=== PATIENT | female | born 1950 | race Caucasian/White ===

== ENCOUNTER 2020-05-26 07:37 | Emergency (ER) | payer BC ==
[~2020-05-26] VITALS: Ht 162.6 cm; Wt 88.0 kg
[2020-05-26 07:59] VITALS: BP 136/92
[2020-05-26] MEDS ORDERED: OXYM30SP25 NS (08:01)
[2020-05-26] MEDS ORDERED: CEPH-264 PO (08:03)
--- NOTE | 2020-05-26 08:06 | PHYS DOC ---
Past History Past Medical History: A-Fib, CAD Adult General Chief Complaint Chief Complaint: NOSEBLEED HPI HPI Patient is a 70yo F on hospice for HFrEF who presents for nose bleed. This is a new problem, reports suffering nose bleeds for past 3 days. These all resolved after <1 hour with direct pressure but today given increased frequency of bleeds prompted her to seek care at our ED for potential cautery. Patient reports being on nasal O2 intermittently at home and has been on this more than usual. She "thinks" she has humidified oxygen, does not apply anything into nostrils to keep dry. In addition, patient is on Xarelto for DVT. While here, she is also wanting evaluation of RLE redness and weaping that started within past week. She has been afebrile and denies any significant pain but admits area has become more red and warm since onset concerning her for cellulitis for which she has suffered from in the past. Review of Systems Review of Systems Fourteen body systems of review of systems have been reviewed. See HPI for pertinent positives and negative responses, other hardin all other systems are negative, non-pertinent or non-contributory Physical Exam Physical Exam Constitutional: Well developed, well nourished, no acute distress, non-toxic appearance. HENT: Normocephalic, atraumatic, bilateral external ears normal, oropharynx magda st, no oral exudates, nose normal. Right nare without any obvious bleeding but residual dried blood present. No blood present in oropharynx Eyes: PERRLA, EOMI, conjunctiva normal, no discharge. Neck: Normal range of motion, no tenderness, supple, no stridor. Cardiovascular: Heart rate regular, irregular rhythm, no murmurs rubs or gallops Lungs & Thorax: Bilateral breath sounds clear to auscultation Abdomen: Bowel sounds normal, soft, no tenderness, no masses, no pulsatile masses. Nonsurgical abdomen, no peritoneal signs Skin: Warm, dry, no rash. Right lower leg involving mid tidwell down to superior ankle warm and tender to touch with several open weeping sores that are all <3mm large. No fluid collection and/or concern for abscess collection Back: No tenderness, no CVA tenderness. Extremities: No tenderness, no cyanosis, no clubbing, ROM intact, 3+ pitting edema bilaterally Neurologic: Alert and oriented X 3, grossly normal motor & sensory function, no focal deficits noted. Psychologic: Affect normal, judgement normal, anxious mood Current Patient Data Vital Signs Vital Signs Date Time Temp Pulse Resp B/P (MAP) Pulse Ox O2 Delivery O2 Flow Rate FiO2 05/26/20 07:59 98.7 117 18 136/92 (107) 93 Room Air EKG EKG [] Radiology/Procedures Radiology/Procedures [] Heart Score Risk Factors: Risk Factors: DM, Current or recent (<one month) smoker, HTN, HLP, family history of CAD, obesity. Risk Scores: Risk Factors: DM, Current or recent (<one month) smoker, HTN, HLP, family history of CAD, obesity. Course & Med Decision Making Course & Med Decision Making Patient hemodynamically stable, airway patent, breathing unlabored, and vitals WNL during my examination (vitals obtained right after patient ambulated into ED room and bed) Discussed nose bleed that has since resolved. No indication for cautery. Patient high risk due to nasal O2 use and also on Xarelto. Advised she apply petroleum jelly based products to moisten nare. Supportive care advised for future nose bleeds. Discussed role of labs in ED to check Hgb but given amount of bleeding reported in an asymptomic hemodynamically stable patient, joint decision to defer. Patient appears to have cellulitis to RLE. Patient treated for this in ED and provided antibiotic script. Later, it was found out that patient had this addressed by hospice physician and decision to treat was deferred. I gave patient antibiotic script and advised her to follow-up and defer to judgement of hospice physician on whether to treat given he/she has more rapport and knows patient case more than I. Patient amenable to plan of care. Strict return precautions were discussed with good understanding by patient. All questions and concerns addressed prior to ED departure in stable condition. Dragon Disclaimer Dragon Disclaimer This electronic medical record was generated, in whole or in part, using a voice recognition dictation system. Departure Departure: Impression: Primary Impression: Nosebleed Additional Impression: Cellulitis of right lower leg Disposition: 01 DC HOME SELF CARE/HOMELESS Condition: STABLE Referrals: CLAUDIA RUIZ MD (PCP) Patient Instructions: Cellulitis, Nosebleed Additional Instructions: As discussed prior to ER departure, please follow-up with your hospice physician Regarding nosebleeds, please ensure you are using humidified oxygen. Please utilize Aquaphor, Vaseline, or other petroleum jelly-based product to apply in your nose to keep it moist while using oxygen. If you experience recurrent nosebleed, please apply direct pressure to nostril in question, utilize 1 to 2 sprays of Afrin which was prescribed to you today, and continue holding direct pressure. If this persists past 20 minutes please proceed to nearest medical facility for evaluation You were also diagnosed with cellulitis of your right lower leg. We have outlined this for you prior to departure so you can follow-up on this in outpatient setting. Please utilize antibiotics and take them as prescribed to completion Any concerning signs or symptoms present prior to outpatient follow-up please do not hesitate to come back for repeat examination Scripts Cephalexin (KEFLEX) 500 Mg Capsule 500 MG PO QID for CELLULITIS for 5 Days, #20 TAB Prov: PAMELA PRICE DO 05/26/20 Oxymetazoline Hcl (AFRIN) 30 Ml [place] 30 ML NS 1X for nosebleed, #1 SPRAY Prov: PAMELA PRICE DO 05/26/20 Problem Qualifiers PAMELA PRICE DO May 26, 2020 08:06
[2020-05-26] MEDS ORDERED: CEPHALEXIN 250 MG CAPSULE PO ONE (08:15)
== END 2020-05-26 08:30 | disposition home or self-care (01) ==
LOC: ER 07:37
DX: R04.0 Epistaxis (principal); L03.115 Cellulitis of right lower limb; I48.20 Chronic atrial fibrillation, unspecified; I25.10 Atherosclerotic heart disease of native coronary artery without angina pectoris
CPT/HCPCS: 99284

== ENCOUNTER 2020-05-28 20:04 | Inpatient (IN) | payer BC, MEDICARE ==
[~2020-05-28] VITALS: Ht 162.6 cm; Wt 89.2 kg
[~2020-05-28 20:04] MED LIST: CEPH-264 PO; OXYM30SP25 NS
--- NOTE | 2020-05-28 20:39 | PHYS DOC ---
Past History Past Medical History: A-Fib, CAD, CHF, High Cholesterol, Hypertension, Other Additional Past Medical Histor: CARDIOMYOPATHY Past Surgical History: Pacemaker, Other Additional Past Surgical Histo: PACEMAKER/DEFIB UNIT, COLOSTOMY, THEN REVERSAL, STOMACH ULCER REPAIR X 5 Alcohol Use: None General Adult EDM: Chief Complaint: LOWER EXTREMITY SWELLING HPI: HPI: 70-year-old female presents with cellulitis and lower extremity edema. The patient was seen in this facility 2 days ago with a nosebleed. She is also noted to have possible cellulitis of the right lower leg. She was placed on Keflex. She has been taking 4 times a day for the last 2 days. She is concerned that it could be getting worse as she has had more small pustules.. She has partially open wound on the right lateral lower leg she says happened today. Patient also complains of over 20 pounds of fluid gain in the last several days. She has edema up to the knees that is significant and both legs are weeping serous fluid. She previously had some serous fluid leakage from her abdomen. She feels more short of breath than normal. She has a history of CHF, 3 MIs, and A. fib. She was told she is in A. fib at this time and has a planned cardioversion on the of this month. She denies fever or chills at home. She used to be on hydrochlorothiazide, but was taken off of this by her primary physician recently. She does not really state a reason why. She still takes Xarelto and carvedilol. Review of Systems: Review of Systems: Constitutional: Denies fever or chills Eyes: Denies change in visual acuity HENT: Denies nasal congestion or sore throat Respiratory: Denies cough or shortness of breath Cardiovascular: Significantly increased lower extremity edema GI: Denies abdominal pain, nausea, vomiting, bloody stools or diarrhea : Denies dysuria Musculoskeletal: Denies back pain or joint pain Integument: Cellulitis Neurologic: Denies headache, focal weakness or sensory changes Endocrine: Denies polyuria or polydipsia Lymphatic: Denies swollen glands Psychiatric: Denies depression or anxiety Allergies: Allergies: Allergies Coded Allergies Type Severity Reaction Last Updated Verified niacin Allergy Unknown 05/26/20 Yes Physical Exam: PE: Constitutional: Well developed, well nourished, no acute distress, non-toxic appearance. [] HENT: Normocephalic, atraumatic, bilateral external ears normal, oropharynx moist, no oral exudates, nose normal. [] Eyes: PERRLA, EOMI, conjunctiva normal, no discharge. [] Neck: Normal range of motion, no tenderness, supple, no stridor. [] Cardiovascular: Heart rate 120, regular rhythm, no murmur [] Lungs & Thorax: Bilateral breath sounds clear to auscultation [] Abdomen: Bowel sounds normal, soft, no tenderness, no masses, no pulsatile masses. [] Skin: Warm, moist, erythematous area of the right lower leg with multiple pustules. Few pustules on the left lower leg without obvious cellulitis. Both lower legs weeping serous fluid. [] Back: No tenderness, no CVA tenderness. [] Extremities: No tenderness, no cyanosis, no clubbing, ROM intact, 3+ pitting edema bilaterally up to the knees. Edema of the anterior abdomen. [] Neurologic: Alert and oriented X 3, normal motor function, normal sensory function, no focal deficits noted. [] Psychologic: Affect normal, judgement normal, mood normal. [] Current Patient Data: Vital Signs: Vital Signs Date Time Temp Pulse Resp B/P (MAP) Pulse Ox O2 Delivery O2 Flow Rate FiO2 05/28/20 20:15 97.7 109 20 144/91 (108) 93 Room Air EKG: EKG: Irregular rhythm, rate 118, normal axis, no ST elevations or depressions, A. fib. [] Radiology/Procedures: Radiology/Procedures: [] Impressions: Exam: Chest one view INDICATION: Edema TECHNIQUE: Frontal view of the chest Comparisons: None FINDINGS: Pacer with leads terminating the right atrium and ventricle. Heart is mildly enlarged. Pulmonary vessels are within normal limits. Small bilateral pleural effusions. Remaining lungs are clear. IMPRESSION: Small bilateral pleural effusions, with adjacent airspace disease likely atelectasis. Electronically signed by: Wilder Weems MD (05/28/2020 9:23 PM) [id number] DICTATED AND SIGNED BY: WILDER WEEMS MD DATE: 05/28/202122 CC: CLAUDIA RUIZ MD; KIMBERLEY LY DO ~ Heart Score: Risk Factors: Risk Factors: DM, Current or recent (<one month) smoker, HTN, HLP, family history of CAD, obesity. Risk Scores: Score 0 - 3: 2.5% MACE over next 6 weeks - Discharge Home Score 4 - 6: 20.3% MACE over next 6 weeks - Admit for Clinical Observation Score 7 - 10: 72.7% MACE over next 6 weeks - Early Invasive Strategies Course & Med Decision Making: Course & Med Decision Making Pertinent Labs and Imaging studies reviewed. (See chart for details) Patient's chest x-ray shows small bilateral pleural effusions. See read for more details. She clinically looks fluid overloaded. Her proBNP is over 10,000. Her creatinine is 1.6. Her troponin is 0.07. I do not have previous any of these labs for comparison. I believe her troponin could be chronic. We will trend it just in case. Her EKG also shows A. fib with a rate of 118. She was already aware of the situation and has a planned cardioversion coming up. I will give the patient 40 mg of Lasix IV and admit her to the hospital. I spoke with Dr. Durand about the patient and he has accepted her for admission. I will also place her on vancomycin IV for her cellulitis. Dr. Durand has requested 80 mg of Lasix IV. 33 minutes of critical care time spent on this patient exclusive of other billable procedures. [] Dragon Disclaimer: Kimani Disclaimer: This electronic medical record was generated, in whole or in part, using a voice recognition dictation system. Departure Departure: Impression: Primary Impression: Acute exacerbation of CHF (congestive heart failure) Qualified Codes: I50.23 - Acute on chronic systolic (congestive) heart failure Additional Impressions: Elevated troponin I level Cellulitis of leg, right Disposition: ADMITTED INPT THIS HOSP Admitting Physician: Rayray Durand Condition: STABLE Referrals: CLAUDIA RUIZ MD (PCP) KIMBERLEY LY DO May 28, 2020 20:39
[2020-05-28 21:21] LABS: CALCIUM 9.6 mg/dL (8.5-10.1); CREATININE 1.6 mg/dL (0.6-1.0); GFR 31.9; POTASSIUM 4.3 mmol/L (3.5-5.1)
[2020-05-28 21:25] LABS: BASO # 0.1 x10^3/uL (0.0-0.2); BASO % 1 % (0-3); EOS % 0 % (0-3); HEMATOCRIT 41.7 % (36.0-47.0); HEMOGLOBIN 12.8 g/dL (12.0-15.5); LYMPH # 2.7 x10^3/uL (1.0-4.8); LYMPH % 34 % (24-48); MEAN CORPUSCULAR HEMOGLOBIN 26 pg (25-35); MEAN CORPUSCULAR HGB CONC 31 g/dL (31-37); MEAN CORPUSCULAR VOLUME 83 fL (79-100); MONO # 0.8 x10^3/uL (0.0-1.1); MONO % 11 % (0-9); NEUT # 4.4 x10^3uL (1.8-7.7); NEUT % 55 % (31-73); PLATELET COUNT 182 x10^3/uL (140-400); RED BLOOD COUNT 5.01 x10^6/uL (3.50-5.40); RED CELL DISTRIBUTION WIDTH 18.8 % (11.5-14.5); WHITE BLOOD COUNT 7.9 x10^3/uL (4.0-11.0)
--- NOTE | 2020-05-28 21:26 | RAD ---
Exam: Chest one view INDICATION: Edema TECHNIQUE: Frontal view of the chest Comparisons: None FINDINGS: Pacer with leads terminating the right atrium and ventricle. Heart is mildly enlarged. Pulmonary vessels are within normal limits. Small bilateral pleural effusions. Remaining lungs are clear. IMPRESSION: Small bilateral pleural effusions, with adjacent airspace disease likely atelectasis. Electronically signed by: Wilder Syed MD (05/28/2020 9:23 PM) [id number]
[2020-05-28 21:27] LABS: ALBUMIN 2.8 g/dL (3.4-5.0); ALBUMIN/GLOBULIN RATIO 0.8 (1.0-1.7); TOTAL BILIRUBIN 1.5 mg/dL (0.2-1.0); TOTAL PROTEIN 6.2 g/dL (6.4-8.2)
[2020-05-28 21:30] LABS: BILIRUBIN,URINE SMALL (NEG); CLARITY,URINE CLEAR; COLOR,URINE AMBER; GLUCOSE,URINE NEG (NEG)
[2020-05-28 21:31] LABS: BACTERIA,URINE FEW /HPF (0-FEW); NITRITE,URINE NEG (NEG); RBC,URINE RARE /HPF (0-2); SQUAMOUS EPITHELIAL CELL,UR FEW /LPF; UROBILINOGEN,URINE 0.2 mg/dL (0.2 mg/dL)
[2020-05-28] MEDS ORDERED: FUROSEMIDE 40 MG/4 ML VIAL IVP ONE ×2 (21:45→22:00)
[2020-05-28] MEDS ORDERED: VANCOMYCIN 2 GM in IV NORMAL SALINE 500ML 500 ML IV ONE (22:00)
[2020-05-28] MEDS ORDERED: IV NORMAL SALINE 500ML 500 ML ONE (22:12)
[2020-05-28] MEDS ORDERED: VANCOMYCIN 1 GM VIAL. ONE ×2 (22:13→22:14)
[2020-05-28] MEDS ORDERED: ONDANSETRON PF 4 MG/2 ML VIAL. IVP ONE (22:15)
[2020-05-28 22:41] VITALS: BP 133/89
[2020-05-28] MEDS ORDERED: RIVA20TA2 PO (23:33)
[2020-05-28] MEDS ORDERED: CARV6.2541 PO (23:33)
[2020-05-29] MEDS ORDERED: CARVEDILOL 6.25 MG TABLET PO SCH
--- NOTE | 2020-05-29 00:20 | EKG ---
[address] [address] Test Date: 2020-05-28 Test Time: 20:54:03 Pat Name: JOHN KRAUSE Department: Room: Gender: F Bar Pointer: MARCE : 1950 Requested By: KIMBERLEY LY Order Number: [id number] Reading MD: Measurements Intervals [place] Rate: 118 P: 90 MD: 168 QRS: 73 QRSD: 82 T: 269 QT: 332 QTc: 468 Interpretive Statements SINUS TACHYCARDIA ATRIAL PREMATURE COMPLEX(ES) ST & T ABNORMALITY, CONSIDER ANTEROLATERAL ISCHEMIA OR LEFT VENTRICULAR STRAIN INFEROLATERAL ISCHEMIA OR LEFT VENTRICULAR STRAIN ABNORMAL ECG RI6.02 No previous ECG available for comparison
[2020-05-29] MEDS ORDERED: CARVEDILOL 12.5 MG TABLET PO ONE (02:30)
[2020-05-29 04:26] LABS: CREATININE 1.5 mg/dL (0.6-1.0); GFR 34.3; POTASSIUM 3.4 mmol/L (3.5-5.1)
[2020-05-29 05:05] VITALS: BP 126/80
[2020-05-29] MEDS ORDERED: VANCOMYCIN 1.25 GM in IV NORMAL SALINE 250ML 250 ML IV SCH (07:30)
[2020-05-29] MEDS: VANCOMYCIN PER PHARMACY MC PRN (07:37)
[2020-05-29] MEDS: LACTOBACILLUS RHAMNOSUS GG 1 CAPSULE. PO SCH ×2 (07:56→20:56)
[2020-05-29] MEDS ORDERED: CARVEDILOL 12.5 MG TABLET PO SCH ×2 (08:30→09:00)
[2020-05-29] MEDS ORDERED: POTASSIUM CHLORIDE 20 MEQ TABLET.ER. PO ONE (09:00)
[2020-05-29] MEDS: FUROSEMIDE 100 MG/10 ML VIAL IVP SCH (09:33)
--- NOTE | 2020-05-29 10:03 | HP ---
ADMIT DATE: 05/28/2020 ATTENDING PHYSICIAN: Dr. Bocanegra. CHIEF COMPLAINT: Lower extremity swelling and erythema. HISTORY OF PRESENT ILLNESS: The patient is a 70-year-old female who has multiple medical issues. She has underlying cardiomyopathy, extensive cardiac history, and paroxysmal atrial fibrillation. She was seen in the ED just 2 days prior with an episode of epistaxis aggravated by her anticoagulation. She is on Xarelto for prevention of stroke. Her main problem now is edema, pitting, extending up to her thighs. There is significant weeping. There is redness and erythema and serous leakage from her wounds. She has a longstanding history of congestive heart failure, 3 previous MIs, 3 cardiac arrests, paroxysmal atrial fibrillation. She has been scheduled for a planned cardioversion later this month. No fevers or chills or COVID exposure. She was started on Keflex for her cellulitis. PAST MEDICAL HISTORY: Quite complicated. She has ischemic cardiomyopathy, 3 previous myocardial infarcts, paroxysmal atrial fibrillation, hyperlipidemia, hypertension, permanent pacemaker. In addition, she had a perforated viscus in 1987 resulting in urgent surgery, colostomy and multiple other abdominal surgeries and eventually, a colostomy takedown. She has had stomach ulcers too, requiring surgical repair. ALLERGIES: SHE HAS ALLERGIES TO NIACIN. SOCIAL HISTORY: She is a nonsmoker, nondrinker. FAMILY HISTORY: Significant for cardiac history in both mom and dad, 1 brother of myocardial infarction. One daughter had an embolic stroke. CURRENT MEDICATIONS: Include Coreg 6.25 mg b.i.d., Xarelto, hydrochlorothiazide and cephalexin. REVIEW OF SYSTEMS: Significant for the recent nosebleed. She has been drinking quite a bit of fluids, which contributes to her edema. She is not aware of any instructions for fluid restriction. She does weigh herself every day. No nausea, but with her previous multiple abdominal surgeries, she does get constipated. She takes occasional MiraLax. No fevers, chills, COVID exposure. All other systems reviewed and determined to be negative. The patient lives at home with her . She does have a home health care already arranged. PHYSICAL EXAMINATION: GENERAL: When I saw her, this is a pleasant, alert female. INITIAL VITAL SIGNS: Showed a blood pressure 126/80; pulse was between 100 and 130, irregularly irregular; temperature 97.5 degrees Fahrenheit; oxygen saturation 95% on room air. HEENT: Head is without trauma. Pupils are reactive. Sclerae nonicteric. NECK: Veins are distended. LUNGS: Minimal crackles at the bases. CARDIOVASCULAR: Showed a tachycardic rhythm, irregularly irregular rhythm. No obvious gallops. Peripheral pulses are palpable and full. ABDOMEN: Soft, no guarding. Multiple surgical scars are well healed. There is no guarding or rebound tenderness. EXTREMITIES: Show 4+ pitting edema extending upwards into her thighs. There is redness and erythema, excoriation involving the right lower extremity. The redness and erythema has receded from the previous line of demarcation. There are some open pustules and weeping drainage from the skin in both legs. NEUROLOGIC FUNCTION: Focally intact. SKIN: Otherwise warm. NEUROLOGIC: Speech is fluent. She is ambulatory with assistance. PERTINENT LABORATORY AND X-RAY STUDIES: The initial chest x-ray showed small bilateral pleural effusions and some atelectasis. The hemoglobin is 12.8 g/dL, white count 7900. Electrolytes: Sodium was 140, potassium 3.4 mEq, creatinine 1.4 mg percent. BNP was 10,397. Troponin was 0.06, suggesting some leakage and stress ischemia. Bilirubin is 1.5. ASSESSMENT: 1. A 70-year-old female with an acute on chronic exacerbation of congestive heart failure. 2. Ischemic cardiomyopathy with multiple previous infarcts. 3. Stasis dermatitis. 4. Chronic kidney disease stage 3. 5. Permanent pacemaker, I saw a dual lead AV sequential pacer on chest x-ray. 6. Paroxysmal atrial fibrillation with rapid ventricular rate. 7. Stasis dermatitis. PLAN: 1. Admit to the inpatient unit. 2. Diuresis. I have ordered Lasix twice a day. 3. Daily weights. 4. Fluid restriction. 5. Serial chemistries. 6. Judicious potassium and magnesium replacement. 7. Increase Coreg to slow ventricular rate. 8. Antibiotics have been ordered and are helping at this time. Please note that the patient requests to be DNR status, we will respect her wishes. ANTONIO BOCANEGRA MD DR: SADIA/kwabena JOB#: [id number] / [id number] CLAUDIA Hickey MD
[2020-05-29 11:05] VITALS: BP 90/64
[2020-05-29] MEDS: DIGOXIN 125 MCG TABLET PO SCH ×4 (11:30→16:40)
[2020-05-29] MEDS ORDERED: VANCOMYCIN 1 GM in IV NORMAL SALINE 250ML 250 ML IV SCH (12:00)
[2020-05-29] MEDS ORDERED: FUROSEMIDE 80 MG TABLET PO SCH (14:00)
[2020-05-29 15:53] VITALS: BP 112/64
[2020-05-29 19:17] VITALS: BP 105/67
[2020-05-29] MEDS: CARVEDILOL 12.5 MG TABLET PO SCH (20:56)
[2020-05-29] MEDS: RIVAROXABAN 10 MG TABLET. PO SCH (20:56)
[2020-05-29] MEDS: VANCOMYCIN 1.25 GM in IV NORMAL SALINE 250ML 250 ML IV SCH (20:57)
[2020-05-29 23:12] VITALS: BP 121/65
[2020-05-30 05:02] VITALS: BP 135/87
[2020-05-30] MEDS: LACTOBACILLUS RHAMNOSUS GG 1 CAPSULE. PO SCH ×2 (07:35→21:54)
[2020-05-30] MEDS: CARVEDILOL 12.5 MG TABLET PO SCH ×2 (07:35→21:53)
[2020-05-30] MEDS: FUROSEMIDE 100 MG/10 ML VIAL IVP SCH ×2 (07:35→14:35)
[2020-05-30] MEDS: DIGOXIN 125 MCG TABLET PO SCH (08:49)
[2020-05-30] MEDS ORDERED: MAGNESIUM CITRATE 296 ML SOLUTION. PO ONE (09:30)
[2020-05-30 10:30] VITALS: BP 112/68
[2020-05-30] MEDS ORDERED: ONDANSETRON PF 4 MG/2 ML VIAL. IVP PRN (14:30)
[2020-05-30 14:31] VITALS: BP 134/82
[2020-05-30] MEDS ORDERED: MAGNESIUM SULFATE 1GM 100 ML IV ONE (16:30)
[2020-05-30 18:34] LABS: CALCIUM 9.1 mg/dL (8.5-10.1); CREATININE 1.5 mg/dL (0.6-1.0); GFR 34.3
[2020-05-30 18:39] LABS: POTASSIUM 2.8 mmol/L (3.5-5.1)
[2020-05-30 19:39] VITALS: BP 120/72
--- NOTE | 2020-05-30 20:56 | PN ---
DATE: 05/30/2020 ATTENDING PHYSICIAN: Dr. Bocanegra. SUBJECTIVE: The patient is doing better. She is more mobile with diuresis. She is able to transfer from her bed to the commode and she noticed considerable improvement in the swelling. OBJECTIVE FINDINGS: VITAL SIGNS: Blood pressure today is 135/87. Pulse is now between 80 and 100 systolic, it remains irregularly irregular. Temperature is 97.6 degrees Fahrenheit. Oxygen saturation 93% on room air. HEENT: Head is without trauma. Pupils are reactive. Sclerae are nonicteric. Oropharynx is clear. NECK: Supple, no bruits. LUNGS: Actually clear to auscultation. CARDIOVASCULAR: Showed irregularly irregular rhythm. There is a soft S3 gallop at the apex. Peripheral pulses are palpable and full. ABDOMEN: Obese, protuberant. No organomegaly. Bowel sounds were hypoactive. EXTREMITIES: Showed improvement of the 4+ edema. The redness and cellulitis has also improved. ASSESSMENT: A 70-year-old female with, 1. Acute on chronic congestive heart failure. 2. Ischemic cardiomyopathy with multiple infarcts. 3. Stasis dermatitis. 4. Chronic kidney disease stage 3. 5. Permanent pacemaker. 6. Paroxysmal atrial fibrillation that is permanent. She had a ventricular rate on admission. 7. Stasis dermatitis. 8. Mild complaints of constipation. PLAN: 1. Continue Lasix b.i.d. 2. Serial chemistries. 3. Daily weights. 4. Fluid restriction. 5. Judicious potassium and magnesium replacement. 6. Coreg dose has been increased and she is tolerating it at 25 mg b.i.d. 7. Digitalis has been added to slow ventricular rate down. 8. Continue antibiotics as ordered. There is a vancomycin trough pending. 9. One dose of magnesium citrate to help with her bowels. ANTONIO BOCANEGRA MD DR: SADIA/kwabena JOB#: [id number] / [id number]
[2020-05-30] MEDS ORDERED: POTASSIUM CHLORIDE 20 MEQ TABLET.ER. PO SCH (21:00)
[2020-05-30] MEDS: RIVAROXABAN 10 MG TABLET. PO SCH (21:54)
[2020-05-30] MEDS: POTASSIUM CHLORIDE 20 MEQ TABLET.ER. PO SCH (21:54)
[2020-05-30 22:00] LABS: VANC TR 15.4 mcg/mL (10.0-20.0)
[2020-05-30] MEDS: VANCOMYCIN 1.25 GM in IV NORMAL SALINE 250ML 250 ML IV SCH (22:13)
[2020-05-30] MEDS: VANCOMYCIN PER PHARMACY MC PRN (22:47)
[2020-05-30 23:40] VITALS: BP 102/67
[2020-05-31 05:14] VITALS: BP 108/59
[2020-05-31 06:40] LABS: CALCIUM 9.1 mg/dL (8.5-10.1); CREATININE 1.2 mg/dL (0.6-1.0); GFR 44.4; POTASSIUM 3.1 mmol/L (3.5-5.1)
[2020-05-31] MEDS: FUROSEMIDE 100 MG/10 ML VIAL IVP SCH ×2 (08:33→13:55)
[2020-05-31] MEDS: POTASSIUM CHLORIDE 20 MEQ TABLET.ER. PO SCH ×2 (08:34→19:57)
[2020-05-31] MEDS: DIGOXIN 125 MCG TABLET PO SCH (08:34)
[2020-05-31] MEDS: LACTOBACILLUS RHAMNOSUS GG 1 CAPSULE. PO SCH ×2 (08:34→19:57)
[2020-05-31] MEDS: CARVEDILOL 12.5 MG TABLET PO SCH ×2 (08:35→19:57)
[2020-05-31] MEDS ORDERED: MAGNESIUM SULFATE 1GM 100 ML IV ONE (08:45)
[2020-05-31 11:13] VITALS: BP 99/62
[2020-05-31 15:16] VITALS: BP 114/73
--- NOTE | 2020-05-31 17:44 | PN ---
DATE: 05/31/2020 ATTENDING PHYSICIAN: Dr. Bocanegra. SUBJECTIVE: The patient is doing better. She had a good bowel movement with the magnesium citrate. Swelling is down. She denied any chest pain. She is able to move her ankles and toes more readily. OBJECTIVE FINDINGS: VITAL SIGNS: Blood pressure today is 108/59, her pulse ranges between 80 and 100. It is irregularly irregular. Her oxygen saturations are 93% on room air. Her temperature is 97.4 degrees Fahrenheit. HEENT: Head is without trauma. Pupils are reactive. Sclerae nonicteric. Oropharynx is clear. NECK: Supple. LUNGS: Clear. CARDIOVASCULAR: Show irregularly irregular rhythm. No gallops. Peripheral pulses are palpable and full. ABDOMEN: Soft, scaphoid, nontender. Normal bowel sounds. EXTREMITIES: Still showed 2+ pitting edema extending up to her mid tidwell. It is a lot improved. There is some hemosiderin deposit. The cellulitis of the right leg has improved. SKIN: Otherwise, warm and dry. PERTINENT LABORATORY STUDIES: Potassium is still slightly diminished at 3.1 mEq, sodium 142. Creatinine paradoxically has improved with twice a day diuresis; it is now down to 1.2 mg/dL due to better perfusion of her kidney. ASSESSMENT: 1. A 70-year-old female with acute on chronic congestive heart failure, improved with diuresis. 2. Ischemic cardiomyopathy with multiple previous infarcts and cardiac arrest. 3. Stasis dermatitis of the lower extremity. 4. Chronic kidney disease, improved. 5. Permanent pacemaker. 6. Paroxysmal atrial fibrillation with rapid ventricular rate that has been controlled. I believe the atrial fibrillation is permanent. 7. Generalized debilitation. 8. Constipation, improved due to multiple previous abdominal surgeries. PLAN: 1. Continue diuresis as ordered with monitoring serial chemistries. The fact that her creatinine has improved indicate that we are immobilizing third space fluid. 2. Continue potassium supplementation, dosage has been increased to 40 mEq b.i.d. 3. Concomitant magnesium replacement for refractory hypokalemia. 4. Daily weights. 5. Continue fluid restriction. 6. Coreg has been increased. 7. Continue Digitalis as ordered to control ventricular rate. I suspect another day or 2 of diuresis and she will be ready for discharge. 8. I will add physical therapy to help with her ambulation. ANTONIO BOCANEGRA MD DR: SADIA/kwabena JOB#: [id number] / [id number]
[2020-05-31 19:25] VITALS: BP 104/68
[2020-05-31] MEDS: RIVAROXABAN 10 MG TABLET. PO SCH (19:57)
[2020-05-31] MEDS: VANCOMYCIN 1.25 GM in IV NORMAL SALINE 250ML 250 ML IV SCH (21:18)
[2020-05-31 23:43] VITALS: BP 118/66
[2020-06-01 05:33] VITALS: BP 136/82
[2020-06-01] MEDS: FUROSEMIDE 100 MG/10 ML VIAL IVP SCH ×2 (07:52→13:22)
[2020-06-01] MEDS: POTASSIUM CHLORIDE 20 MEQ TABLET.ER. PO SCH ×3 (07:56→20:05)
[2020-06-01] MEDS: LACTOBACILLUS RHAMNOSUS GG 1 CAPSULE. PO SCH ×2 (07:57→20:04)
[2020-06-01] MEDS: DIGOXIN 125 MCG TABLET PO SCH (07:57)
[2020-06-01] MEDS: CARVEDILOL 12.5 MG TABLET PO SCH ×2 (07:58→20:04)
[2020-06-01] MEDS: NYSTATIN TOPICAL POWDER 15GM BOTTLE. TP SCH ×2 (09:00→20:32)
[2020-06-01 11:44] LABS: ALBUMIN 2.7 g/dL (3.4-5.0); ALBUMIN/GLOBULIN RATIO 0.9 (1.0-1.7); TOTAL BILIRUBIN 1.6 mg/dL (0.2-1.0); TOTAL PROTEIN 5.7 g/dL (6.4-8.2)
[2020-06-01 11:49] LABS: CALCIUM 8.9 mg/dL (8.5-10.1); CREATININE 1.3 mg/dL (0.6-1.0); GFR 40.5; POTASSIUM 3.3 mmol/L (3.5-5.1)
[2020-06-01 12:04] LABS: BASO # 0.1 x10^3/uL (0.0-0.2); BASO % 1 % (0-3); EOS % 1 % (0-3); HEMATOCRIT 41.5 % (36.0-47.0); HEMOGLOBIN 12.6 g/dL (12.0-15.5); LYMPH # 1.7 x10^3/uL (1.0-4.8); LYMPH % 23 % (24-48); MEAN CORPUSCULAR HEMOGLOBIN 25 pg (25-35); MEAN CORPUSCULAR HGB CONC 30 g/dL (31-37); MEAN CORPUSCULAR VOLUME 83 fL (79-100); MONO # 0.8 x10^3/uL (0.0-1.1); MONO % 11 % (0-9); NEUT # 4.7 x10^3uL (1.8-7.7); NEUT % 65 % (31-73); PLATELET COUNT 173 x10^3/uL (140-400); RED CELL DISTRIBUTION WIDTH 18.9 % (11.5-14.5); WHITE BLOOD COUNT 7.3 x10^3/uL (4.0-11.0)
[2020-06-01 15:56] VITALS: BP 120/77
[2020-06-01] MEDS: RIVAROXABAN 10 MG TABLET. PO SCH (20:05)
[2020-06-01 20:29] VITALS: BP 97/63
[2020-06-01] MEDS: VANCOMYCIN 1.25 GM in IV NORMAL SALINE 250ML 250 ML IV SCH (22:11)
[2020-06-01 22:14] VITALS: BP 115/71
[2020-06-02 04:17] VITALS: BP 104/58
[2020-06-02 07:02] LABS: ALBUMIN 2.6 g/dL (3.4-5.0); ALBUMIN/GLOBULIN RATIO 0.8 (1.0-1.7); CALCIUM 8.9 mg/dL (8.5-10.1); CREATININE 1.3 mg/dL (0.6-1.0); GFR 40.5; POTASSIUM 3.9 mmol/L (3.5-5.1); TOTAL BILIRUBIN 1.5 mg/dL (0.2-1.0); TOTAL PROTEIN 5.7 g/dL (6.4-8.2)
--- NOTE | 2020-06-02 07:58 | PDOC2 ---
EMIL ROMERO COMPUTER ARTIST 06/02/20 0758: CARDIAC CONSULT DATE OF CONSULT DOS: DATE: 06/02/20 TIME: 07:54 REASON FOR CONSULT Reason for Consult CHF REFERRING PHYSICIAN Referring Physician Dr. Rodriguez SOURCE Source: Chart review, Patient HPI History of Present Illness This is a 70 yo female who presented secondary to worsened LE cellulitis and edema. She has a history of hypertrophic cardiomyopathy s/p AICD and cardiac arrest x3. Follows with [facility] Cardiology. Also has history of AFIB and has CV planned next week. She reports progressive LE edema for the last month or so. Was previously on HCTZ, but this was discontinued by PCP as they were attempting to lessen the amount of medication she takes. Was previously on Hospice prior to arrival. Plans to go home with . She denies any chest pain, palpitations, dizziness, diaphoresis, or nausea/vomiting. PAST MEDICAL HISTORY Cardiovascular: AFIB, CHF (hypertrophic cardiomyopathy), HTN Musculoskeletal: Osteoarthritis PAST SURGICAL HISTORY Past Surgical History: Colon Resection, Other (AICD, colectomy ) FAMILY HISTORY Family History: Heart Disease, Stroke SOCIAL HISTORY Smoke: No ALCOHOL: none Drugs: None Lives: with Family CURRENT MEDICATIONS Current Medications Current Medications Vancomycin HCl (Vanco Per Pharmacy) 1 each PRN DAILY PRN MC SEE COMMENTS Last administered on 05/30/20at 22:47; Start 05/28/20 at 21:30 Furosemide (Lasix) 40 mg 1X ONCE IVP Last administered on 05/28/20at 21:54; Start 05/28/20 at 21:45; Stop 05/28/20 at 21:46; Status DC Furosemide (Lasix) 40 mg 1X ONCE IVP Last administered on 05/28/20at 21:55; Start 05/28/20 at 22:00; Stop 05/28/20 at 22:01; Status DC Vancomycin HCl 2 gm/Sodium Chloride 500 ml @ 250 mls/hr 1X ONCE IV Last administered on 05/28/20at 23:28; Start 05/28/20 at 22:00; Stop 05/28/20 at 23:59; Status DC Ondansetron HCl (Zofran) 4 mg 1X ONCE IVP Last administered on 05/28/20at 22:15; Start 05/28/20 at 22:15; Stop 05/28/20 at 22:16; Status DC Sodium Chloride 500 ml @ As Directed STK-MED ONCE .ROUTE ; Start 05/28/20 at 22:12; Stop 05/28/20 at 22:13; Status DC Vancomycin HCl (Vancomycin) 1 gm STK-MED ONCE .ROUTE ; Start 05/28/20 at 22:13; Stop 05/28/20 at 22:13; Status DC Vancomycin HCl (Vancomycin) 1 gm STK-MED ONCE .ROUTE ; Start 05/28/20 at 22:14; Stop 05/28/20 at 22:15; Status DC Carvedilol (Coreg) 6.25 mg BIDWMEALS PO Last administered on 05/29/20at 00:00; Start 05/29/20 at 00:00; Stop 05/29/20 at 02:07; Status DC Rivaroxaban (Xarelto) 20 mg QHS PO Last administered on 06/01/20at 20:05; Start 05/29/20 at 21:00 Vancomycin HCl 1 gm/Sodium Chloride 250 ml @ 250 mls/hr Q12H IV ; Start 05/29/20 at 12:00; Status UNV Carvedilol (Coreg) 12.5 mg 1X ONCE PO Last administered on 05/29/20at 02:28; Start 05/29/20 at 02:30; Stop 05/29/20 at 02:31; Status DC Carvedilol (Coreg) 12.5 mg BID PO Last administered on 05/29/20at 07:56; Start 05/29/20 at 09:00; Stop 05/29/20 at 08:30; Status DC Vancomycin HCl 1.25 gm/Sodium Chloride 250 ml @ 167 mls/hr Q24H IV ; Start 05/29/20 at 07:30; Status Cancel Vancomycin HCl (Vancomycin Trough Level) 1 each 1X ONCE MC Last administered on 05/30/20at 21:30; Start 05/30/20 at 21:30; Stop 05/30/20 at 21:31; Status DC Lactobacillus Rhamnosus (Culturelle) 1 cap BID PO Last administered on 06/01/20at 20:04; Start 05/29/20 at 09:00 Vancomycin HCl 1.25 gm/Sodium Chloride 250 ml @ 167 mls/hr Q24H IV Last administered on 06/01/20at 22:11; Start 05/29/20 at 22:00 Potassium Chloride (Klor-Con) 40 meq DAILY ONCE PO Last administered on 05/29/20at 09:33; Start 05/29/20 at 09:00; Stop 05/29/20 at 09:01; Status DC Carvedilol (Coreg) 25 mg BID PO Last administered on 06/01/20at 20:04; Start 05/29/20 at 21:00 Carvedilol (Coreg) 12.5 mg 1X PO ; Start 05/29/20 at 08:30; Stop 05/30/20 at 18:50; Status DC Furosemide (Lasix) 80 mg BID92 PO ; Start 05/29/20 at 14:00; Status UNV Furosemide (Lasix) 80 mg BID92 IVP Last administered on 06/01/20at 13:22; Start 05/29/20 at 14:00 Digoxin (Lanoxin) 250 mcg Q1HR PO Last administered on 05/29/20at 16:40; Start 05/29/20 at 11:00; Stop 05/29/20 at 14:01; Status DC Digoxin (Lanoxin) 250 mcg DAILY PO Last administered on 06/01/20at 07:57; Start 05/30/20 at 09:00 Magnesium Citrate (Citroma) 296 ml 1X ONCE PO Last administered on 05/30/20at 09:30; Start 05/30/20 at 09:30; Stop 05/30/20 at 09:31; Status DC Ondansetron HCl (Zofran) 4 mg PRN Q6HRS PRN IVP NAUSEA/VOMITING Last administered on 05/30/20at 14:35; Start 05/30/20 at 14:30 Magnesium Sulfate 100 ml @ 100 mls/hr 1X ONCE IV Last administered on 05/30/20at 16:59; Start 05/30/20 at 16:30; Stop 05/30/20 at 17:29; Status DC Potassium Chloride (Klor-Con) 20 meq BID PO ; Start 05/30/20 at 21:00; Stop 05/30/20 at 18:46; Status DC Potassium Chloride (Klor-Con) 40 meq BID PO Last administered on 06/01/20at 07:56; Start 05/30/20 at 21:00; Stop 06/01/20 at 15:48; Status DC Magnesium Sulfate 100 ml @ 100 mls/hr 1X ONCE IV Last administered on 05/31/20at 09:24; Start 05/31/20 at 08:45; Stop 05/31/20 at 09:44; Status DC Nystatin (Nystop) 1 elaine BID TP Last administered on 06/01/20at 20:32; Start 06/01/20 at 09:00 Polyethylene Glycol (miraLAX) 17 gm DAILY PO ; Start 06/02/20 at 09:00 Potassium Chloride (Klor-Con) 40 meq TID PO Last administered on 06/01/20at 20:05; Start 06/01/20 at 15:45 Active Scripts Active Keflex (Cephalexin) 500 Mg Capsule 500 Mg PO QID 5 Days Afrin (Oxymetazoline Hcl) 30 Ml [place] 30 Ml NS 1X Reported Carvedilol (Carvedilol) 6.25 Mg Tablet 6.25 Mg PO BID Xarelto (Rivaroxaban) 20 Mg Tablet 1 Tab PO QHS 30 Days with food ALLERGIES Allergies: Coded Allergies: niacin (Verified Allergy, Unknown, 05/26/20) ROS Review of Systems 14 point ROS conducted with pertinent positives noted above in HPI PHYSICAL EXAM General: Alert, Oriented X3, Cooperative, No acute distress HEENT: Atraumatic Lungs: Clear to auscultation Heart: Other (IRRR; intermittent v-pacing with underlying AFIB) Abdomen: Soft Extremities: Other (2+ bilateral LE edema. ) Skin: No significant lesion (mild LE erythema ) Neuro: Normal speech, Sensation intact Psych/Mental Status: Mental status NL, Mood NL MUSCULOSKELETAL: Osteoarthritic changes both hands VITALS Vital Signs Vital Signs Date Time Temp Pulse Resp B/P (MAP) Pulse Ox O2 Delivery O2 Flow Rate FiO2 06/02/20 04:17 97.8 52 20 104/58 (73) 98 Room Air LABS LABS Laboratory Tests Test 06/01/20 06:05 06/02/20 06:13 White Blood Count 7.3 x10^3/uL (4.0-11.0) Red Blood Count 5.00 x10^6/uL (3.50-5.40) Hemoglobin 12.6 g/dL (12.0-15.5) Hematocrit 41.5 % (36.0-47.0) Mean Corpuscular Volume 83 fL (79-100) Mean Corpuscular Hemoglobin 25 pg (25-35) Mean Corpuscular Hemoglobin Concent 30 g/dL (31-37) Red Cell Distribution Width 18.9 % (11.5-14.5) Platelet Count 173 x10^3/uL (140-400) Neutrophils (%) (Auto) 65 % (31-73) Lymphocytes (%) (Auto) 23 % (24-48) Monocytes (%) (Auto) 11 % (0-9) Eosinophils (%) (Auto) 1 % (0-3) Basophils (%) (Auto) 1 % (0-3) Neutrophils # (Auto) 4.7 x10^3uL (1.8-7.7) Lymphocytes # (Auto) 1.7 x10^3/uL (1.0-4.8) Monocytes # (Auto) 0.8 x10^3/uL (0.0-1.1) Eosinophils # (Auto) 0.0 x10^3/uL (0.0-0.7) Basophils # (Auto) 0.1 x10^3/uL (0.0-0.2) Sodium Level 140 mmol/L (136-145) 140 mmol/L (136-145) Potassium Level 3.3 mmol/L (3.5-5.1) 3.9 mmol/L (3.5-5.1) Chloride Level 100 mmol/L (98-107) 101 mmol/L (98-107) Carbon Dioxide Level 34 mmol/L (21-32) 36 mmol/L (21-32) Anion Gap 6 (6-14) 3 (6-14) Blood Urea Nitrogen 17 mg/dL (7-20) 14 mg/dL (7-20) Creatinine 1.3 mg/dL (0.6-1.0) 1.3 mg/dL (0.6-1.0) Estimated GFR (Cockcroft-Gault) 40.5 40.5 BUN/Creatinine Ratio 13 (6-20) 11 (6-20) Glucose Level 164 mg/dL (70-99) 95 mg/dL (70-99) Calcium Level 8.9 mg/dL (8.5-10.1) 8.9 mg/dL (8.5-10.1) Total Bilirubin 1.6 mg/dL (0.2-1.0) 1.5 mg/dL (0.2-1.0) Aspartate Amino Transf (AST/SGOT) 33 U/L (15-37) 30 U/L (15-37) Alanine Aminotransferase (ALT/SGPT) 24 U/L (14-59) 25 U/L (14-59) Alkaline Phosphatase 145 U/L (46-116) 132 U/L (46-116) Total Protein 5.7 g/dL (6.4-8.2) 5.7 g/dL (6.4-8.2) Albumin 2.7 g/dL (3.4-5.0) 2.6 g/dL (3.4-5.0) Albumin/Globulin Ratio 0.9 (1.0-1.7) 0.8 (1.0-1.7) Magnesium Level 2.0 mg/dL (1.8-2.4) ECHOCARDIOGRAM Echocardiogram Echo at [facility] 04/09/20 Conclusion 1. Mild reduced LVEF, calculated EF 46% 2. Asymmetric septal hypertrophy 3. Normal RV size and systolic function 4. Aortic valve sclerosis with mild regurg 5. Moderate mitral and tricuspid regur 6. Mildly elevated PAP, Elevated CVP ASSESSMENT/PLAN Assessment/Plan 1. Acute on chronic systolic CHF; improved with diuresis. Will need routinue oral diuretics opon discharge with K replacement. 2. Septal hypertrophic cardiomyopathy; s/p AICD. Echo 04/03 with LVEF 46%. continue BB therapy. No AARTI with LULU, low end BP 3. Previous PEA arrest 4. Mild troponin elevation; peak 0.07. Most probably type II, demand ischemia. CP free 5. Persistent AFIB; s/p previous CV. rate controlled. [facility] X[facility] for stroke prophylaxis[facility] Plans for [facility] next month 6. LE cellulitis; imrorved with oral antibiotics 7. LULU on CKD; better 8. Hypokalemia; replaced. Follow up closely with [facility] cardiology upon discharge JAHAIRA CADET MD 06/02/20 1633: CARDIAC CONSULT ASSESSMENT/PLAN Assessment/Plan Patient seen and evaluated I agree with our nurse practitioners assessment and plan as above. Acute on chronic systolic heart failure. Significantly improved with diuresis. We will continue oral diuretics. Septal hypertrophic cardiomyopathy. Status post AICD. Echo 2 months with an ejection fraction of 46%. Continuing on beta-annia treatment. History of a PEA arrest. Initial minimally elevated troponin at 0.074. Normal since that time. No chest pain. Persistent atrial fibrillation. Rate controlled. On Xarelto. Plan for car dioversion at [facility] in the next 2 to 3 weeks. Lower extremity cellulitis. Continuing oral antibiotics. Chronic kidney disease. Improved. Thank you for allowing us to participate in the care of your patient. EMIL ROMERO APRN Jun 02, 2020 07:58 JAHAIRA CADET MD Jun 02, 2020 16:33
[2020-06-02 08:32] VITALS: BP 114/70
[2020-06-02] MEDS: POTASSIUM CHLORIDE 20 MEQ TABLET.ER. PO SCH ×2 (08:33→14:16)
[2020-06-02] MEDS: FUROSEMIDE 100 MG/10 ML VIAL IVP SCH ×2 (08:34→14:16)
[2020-06-02] MEDS: LACTOBACILLUS RHAMNOSUS GG 1 CAPSULE. PO SCH (08:34)
[2020-06-02] MEDS: CARVEDILOL 12.5 MG TABLET PO SCH (08:34)
[2020-06-02] MEDS: NYSTATIN TOPICAL POWDER 15GM BOTTLE. TP SCH (08:35)
[2020-06-02] MEDS: DIGOXIN 125 MCG TABLET PO SCH (08:35)
[2020-06-02] MEDS ORDERED: POLYETHYLENE GLYCOL 3350 17 GM PACKET. PO SCH (09:00)
[2020-06-02 11:05] VITALS: BP 93/62
--- NOTE | 2020-06-02 13:10 | PN ---
DATE: 06/01/2020 SUBJECTIVE: The patient is a 70-year-old female patient, who was admitted with bilateral lower extremity cellulitis and also marked bilateral lower extremity edema. When I saw her today, she stated that she is feeling much better. Apparently, she was treated with oral Keflex 4 times a day for 2 days without much improvement and therefore, she was admitted to the hospital and was started on IV vancomycin as well as IV Lasix. Her swelling is gradually improving. Her right lower extremity is still more swollen than the left. She still has some faint erythema, but denied any chest pain or shortness of breath. OBJECTIVE: GENERAL: When I examined her, she looked well and was clearly in no apparent respiratory distress. No pallor, jaundice or cyanosis. No lymphadenopathy, no thyromegaly, but bilateral lower extremity edema. VITAL SIGNS: Her heart rate was 92, blood pressure was 136/82, temperature was 98.3, respiratory rate 20, and oxygen saturation was 96% on room air. HEAD, EYES, EARS, NOSE, AND THROAT: Showed normocephalic, atraumatic. NECK: Supple. CARDIAC: Normal first and second heart sounds. No gallop, rub or murmur. CHEST: Clear to auscultation. No crepitation or rhonchi. ABDOMEN: Distended, soft, nontender. NEUROLOGIC: She is awake, alert, responding appropriately. All cranial nerves intact. She moves extremities without difficulty. EXTREMITIES: Both lower extremities showed that both swollen, right more than left. She has also erythema and the swelling is particularly worse over the distal half of both legs and the dorsum of both feet. Her intake over the last 24 hours was 1225, output was 2400. LABORATORY DATA: As of this morning, her white cell count was 7300, hemoglobin was 12.6, hematocrit 41, MCV 83 and platelet count of 173,000. Her chemistry showed a serum sodium 140, potassium 3.3, chloride 100, bicarbonate 34, anion gap of 6, BUN 17, creatinine 1.3, estimated GFR was 40 mL per minute. Her glucose was 164, calcium was 8.9. Total bilirubin and alkaline phosphatase slightly elevated. AST and ALT were normal. Total protein 5.7, albumin was 2.7. Urinalysis was unremarkable, and toxic screen showed that vancomycin trough level was well within therapeutic range. Her urine culture has grown 20,000 colony forming units of gram-negative rods identified as Citrobacter amalonaticus as well as Pseudomonas aeruginosa. Her blood cultures so far showed no growth after 3 days. ASSESSMENT: 1. Acute on chronic congestive heart failure, likely systolic. 2. Ischemic cardiomyopathy with multiple previous infarcts and cardiac arrest. The patient has automatic implantable cardioverter defibrillators. 3. Stasis dermatitis of lower extremities. 4. Chronic kidney disease. 5. The patient has paroxysmal atrial fibrillation with rapid ventricular response that has been rate controlled, well anticoagulated. 6. Generalized debility. 7. Constipation. PLAN: To continue with diuresis. Continue with IV antibiotic for bilateral lower extremity cellulitis. Replenish her potassium. We will get the records from [facility] and I will also ask the wastewater supervisor to assist with her management. BETTINA WOLFF MD DR: ALANIS/kwabena JOB#: [id number] / [id number]
[2020-06-02 14:14] VITALS: BP 109/72
[2020-06-02 15:00] VITALS: BP 119/75
[2020-06-02] MEDS ORDERED: POTA20TA4 PO (15:14)
[2020-06-02] MEDS ORDERED: LINE600T12 PO (15:14)
[2020-06-02] MEDS ORDERED: MUPI15CR8 TP (15:14)
[2020-06-02] MEDS ORDERED: FURO-68 PO (15:14)
--- NOTE | 2020-06-03 02:23 | DS ---
DATE OF DISCHARGE: 06/02/2020 HOSPITAL COURSE: The patient is a 70-year-old female patient, who was admitted on 05/29 with marked bilateral lower extremity swelling and erythema. She apparently is known to have hypertrophic obstructive cardiomyopathy, paroxysmal atrial fibrillation. She is on Coreg for rate control and Xarelto for stroke prevention. She was found to have marked pitting edema and bilateral lower extremity cellulitis. She was started on IV Lasix and IV vancomycin and her swelling has steadily improved. She has mild pitting edema on the dorsum of both feet. The erythema has largely subsided and a decision was made to discharge her home to continue on oral Lasix as well as potassium supplement together with Zyvox to complete the course of treatment. PHYSICAL EXAMINATION: GENERAL: When I saw her this afternoon, she looked well and was clearly in no apparent respiratory distress. No pallor, jaundice, cyanosis or thyromegaly. No jugular venous distention. No lower limb edema. VITAL SIGNS: Her heart rate was 71, blood pressure was 109/72, temperature was 98, respiratory rate was 18 and oxygen saturation was 94%. HEAD, EYES, EARS, NOSE AND THROAT: Showed normocephalic, atraumatic. NECK: Supple. HEART: Showed normal first and second heart sounds. No gallop, rub or murmur. CHEST: Clear to auscultation. No crepitation or rhonchi. ABDOMEN: Distended, soft, nontender. NEUROLOGIC: She is awake, alert, responding appropriately. All cranial nerves intact. She moves extremities without difficulty. She has been able to ambulate to the bathroom on her own with a walker, has also worked with physical therapy today. Her intake over the last 24 hours was 1550, output was 1500. LABORATORY DATA: Most recent, shows white cell count 7300, hemoglobin 12.6, hematocrit 41.5, MCV 83 and platelet count of 173,000. Her chemistry this morning showed a serum sodium 140, potassium 3.9, chloride 101, bicarbonate 36, anion gap of 3, BUN 14, creatinine 1.3, estimated GFR was 40 mL per minute. Her glucose was 95, calcium was 8.9, magnesium 2. Total bilirubin is 1.5. AST and ALT were normal. Alkaline phosphatase slightly elevated. Total protein was 5.7, albumin was 2.6. Her urinalysis was essentially unremarkable and her toxic screen showed vancomycin trough level of 15.4, which was well within normal range. Her blood cultures are so far negative after 4 days and her urine culture has grown about 20,000 colony-forming units per mL of gram-negative rods identified as Citrobacter amalonaticus, as well as Pseudomonas aeruginosa, both of them are below the level of treatment. DISCHARGE MEDICATIONS: The patient will be discharged home to continue on furosemide 40 mg twice a day, potassium chloride 20 mEq 3 times a day, linezolid 600 mg twice a day and mupirocin cream apply topically 3 times a day, carvedilol 6.25 mg twice a day and rivaroxaban or Xarelto 20 mg once a day. FINAL DISCHARGE DIAGNOSES: 1. Acute on chronic systolic congestive heart failure, improved with diuresis. She will be discharged on Lasix 40 mg twice a day and potassium chloride 20 mEq 3 times a day. 2. Septal hypertrophic cardiomyopathy, status post AICD and echocardiograms done on 04/11, showed left ventricular ejection fraction of 46%. The patient has also previous pulseless electrical activity arrest. 3. Mild troponin elevation, peaked at 0.07, most probably type 2 demand ischemia as per the carpenter repairer evaluation. 4. Persistent atrial fibrillation, status post previous cardioversion, rate controlled, on Xarelto for stroke prevention. [facility] ____ plans for cardioversion again next month. She has left lower extremity cellulitis, improving. She will be discharged home on oral Zyvox. 5. Acute on chronic kidney injury, improving. Her creatinine came down from 1.6 to 1.3. 6. Hypokalemia, has improved. Her potassium this morning was 3.9. I left a message with ____ home health care nurse as the patient is not really sure about her medication so that we can coordinate the care and to check also her labs and her weights and adjust medication accordingly. BETTINA WOLFF MD DR: ALANIS/kwabena JOB#: [id number] / [id number]
== END 2020-06-02 18:00 | disposition home health service (06) | DRG 291 ==
LOC: ER 20:04 → 1 SOUTH 21:00
PROVIDERS: ADMIT Hospitalist; ATTEND Hospitalist
DX: I13.0 Hypertensive heart and chronic kidney disease with heart failure and stage 1 through stage 4 chronic kidney disease, or unspecified chronic kidney disease (principal); I50.23 Acute on chronic systolic (congestive) heart failure; N17.0 Acute kidney failure with tubular necrosis; L03.115 Cellulitis of right lower limb; J98.11 Atelectasis; I48.21 Permanent atrial fibrillation; L03.116 Cellulitis of left lower limb; I42.1 Obstructive hypertrophic cardiomyopathy; I42.2 Other hypertrophic cardiomyopathy; E78.00 Pure hypercholesterolemia, unspecified; E78.5 Hyperlipidemia, unspecified; E87.6 Hypokalemia; I25.10 Atherosclerotic heart disease of native coronary artery without angina pectoris; I25.5 Ischemic cardiomyopathy; I87.2 Venous insufficiency (chronic) (peripheral); K59.00 Constipation, unspecified; N18.30 Chronic kidney disease, stage 3 unspecified; R04.0 Epistaxis; Z66 Do not resuscitate; Z79.01 Long term (current) use of anticoagulants; Z82.3 Family history of stroke; Z82.49 Family history of ischemic heart disease and other diseases of the circulatory system; Z86.74 Personal history of sudden cardiac arrest; Z87.11 Personal history of peptic ulcer disease; Z93.3 Colostomy status; Z95.810 Presence of automatic (implantable) cardiac defibrillator; M19.90 Unspecified osteoarthritis, unspecified site; B96.5 Pseudomonas (aeruginosa) (mallei) (pseudomallei) as the cause of diseases classified elsewhere
CPT/HCPCS: 36415; 71045; 80048; 80053; 80202; 81001; 83735; 83880; 84484; 85025; 87040; 87077; 87086; 87186; 93005; 99291; J1940; J2405; J3370; J3475; J7040; J7050; 97116; 97530

== ENCOUNTER → 2020-08-31 | Outpatient (CLI) | payer BC, MEDICARE ==
[~2020-08-31] MED LIST changes: +CARV6.2541 PO; +FURO-68 PO; +LINE600T12 PO; +MUPI15CR8 TP; +POTA20TA4 PO; +RIVA20TA2 PO
--- NOTE | 2020-08-31 08:31 | RAD ---
EXAM: Abdomen sonogram. HISTORY: Right upper quadrant pain. TECHNIQUE: Sonographic imaging of the abdomen was performed. COMPARISON: None. FINDINGS: The liver is normal in size. No focal hepatic lesion is seen. The gallbladder is unremarkab le. The common bile duct is normal in caliber. The right kidney is unremarkable. The inferior vena ca va is patent. The pancreas is obscured due to bowel gas. IMPRESSION: No acute sonographic finding. Electronically signed by: Eliana Vegas MD (08/31/2020 8:28 AM) [id number]
== END ==
LOC: US 07:40
PROVIDERS: ATTEND Physician Assistant
DX: R10.11 Right upper quadrant pain (principal)
CPT/HCPCS: 76705

== ENCOUNTER → 2021-07-17 | Outpatient (CLI) | payer OTHER ==
[~2021-07-17] MED LIST changes: +POTA-121 PO; -POTA20TA4 PO
--- NOTE | 2021-07-17 15:02 | RAD ---
AP and Lateral Views of the Chest 07/17/2021 11:38 AM Indication: Reason: PRODUCTIVE COUGH COVID EXPOSURE Comparison: Chest radiograph May 28, 2020 Findings: There is a dual-lead pacemaking/ICD device from left subclavian approach. There is no focal consolidation or infiltrate identified. Heart size is normal. There is no evidence of pneumothorax o r pleural effusion. No acute osseous abnormalities are identified. Impression: No evidence of acute cardiopulmonary process. Electronically signed by: Antonino Benjamin MD (07/17/2021 3:00 PM) [id number]
== END ==
LOC: RAD 11:30
PROVIDERS: ATTEND Physician Assistant
DX: R05.9 Cough, unspecified (principal); Z95.0 Presence of cardiac pacemaker
CPT/HCPCS: 71046